=== PATIENT | male | born 1940 | race Caucasian/White ===

== ENCOUNTER 2024-03-06 20:30 | Emergency (ER) | payer OTHER, SELFPAY ==
[2024-03-06 20:35] VITALS: BP 177/98; PULSE 89; TEMP 36.8; O2SAT 95
--- NOTE | 2024-03-06 20:45 | ED.LOWEXI1 ---
HPI HPI - Extremity Injury (Lower) General Chief Complaint: Extremity Injury, Lower Stated Complaint: ARTHRITIS ACTING UP, NEEDS PAIN MEDS Time Seen by Provider: 03/06/24 20:37 Source: patient Mode of arrival: walk-in Limitations: no limitations History of Present Illness HPI Narrative: patient states he has arthritis and is now having a flare up of his arthritis. States he has had it before and it usually resolves with prednisone. States treated for it in [place] 3 weeks ago. Increasing pain again. No fever. Not aware of history of gout. Increased pain when bearing weight Related Data Allergies Allergy/AdvReac Type Severity Reaction Status Date / Time No Known Drug Allergies Allergy Verified 03/06/24 20:44 Opioid HPI Opioid Management Most Recent Pain and Opioid Data: Last Pain Scale 9 03/06/24 20:52 Review of Systems ROS Status of ROS 10 or more systems reviewed and unremarkable except as noted in history and below Exam Constitutional Vital Signs, click to edit/add: Last Vital Signs Temp 98.3 F 03/06/24 20:35 Pulse 89 03/06/24 20:35 Resp 18 03/06/24 20:35 BP 177/98 H 03/06/24 20:35 Pulse Ox 95 03/06/24 20:35 O2 Del Method Room Air 03/06/24 20:35 Common normals: no apparent distress, average body habitus, oriented x3, no limitations, healthy appearing, alert and well nourished [facility] Common normals: normocephalic and head/scalp atraumatic Eye Common normals: PERRL and EOMs intact bilaterally Respiratory Common normals: normal respiratory effort, no retractions, no use of accessory muscles and clear to auscultation bilaterally Cardio Common normals: regular rate, regular rhythm, S1 normal heart sound and S2 normal heart sound Extremity Other: swelling and erythema right medial malleolus Neuro Common normals: oriented x3, CN's II-XII intact bilaterally, moves all extremities and no focal motor deficits Psych Appearance: grossly normal Course Vital Signs Vital signs: Vital Signs Temperature 98.3 F 03/06/24 20:35 Pulse Rate 89 03/06/24 20:35 Respiratory Rate 18 03/06/24 20:35 Blood Pressure 177/98 H 03/06/24 20:35 Pulse Oximetry 95 03/06/24 20:35 Oxygen Delivery Method Room Air 03/06/24 20:35 Temperature 98.3 F 03/06/24 20:35 Pulse Rate 89 03/06/24 20:35 Respiratory Rate 18 03/06/24 20:35 Blood Pressure 177/98 H 03/06/24 20:35 Pulse Oximetry 95 03/06/24 20:35 Oxygen Delivery Method Room Air 03/06/24 20:35 MDM - Extremity Injury (Lower) MDM Narrative Medical decision making narrative: patient presents complaining of arthritis flare. States similar episodes in the past that clear with prednisone. The joint has the appearance of gout but he denies history of gout. No fever. He does not feel ill. no systemic symptoms. Complaint is mainly of pain. Patient given dose of Solumedrol and discharged home with prednisone Discharge Plan Discharge Stand Alone Forms: Portal Instructions Chief Complaint: Extremity Injury, Lower Clinical Impression: Arthritis of ankle, right Patient Disposition: Home, Self-Care Print Language: Kazakh Instructions: Arthritis (ED) Additional Instructions: follow up with your family doctor next week for recheck Referrals: Physician,Non-Staff, MD [Primary Care Provider] - 1 week Discharge Date/Time: 03/06/24 21:15
--- NOTE | 2024-03-06 20:55 | PC.NURSE ---
patient right ankle red, swollen. States has been this way for 3 weeks. Was trying to get prescription from doctor in [place] but would not give him anything because he had not given him anything in the past. Patient states that he has had this in the past and was treated with prednisone and that is what he would like today.
[2024-03-06] MEDS: METHYLPREDNISOLONE SOD SUCC PF 125 MG/2 ML VIAL IM (21:04)
== END 2024-03-06 21:15 | disposition home or self-care (01) ==
PROVIDERS: Emergency Provider Internal Medicine; Family Provider Family Medicine
DX: M19.071 Primary osteoarthritis, right ankle and foot (principal)
CPT/HCPCS: 96372; 99284; J2919